=== PATIENT | female | born 2000 | race Caucasian/White ===

== ENCOUNTER 2023-04-09 11:51 | Outpatient (CLI) | payer OTHER, SELFPAY ==
[2023-04-09 12:35] LABS: Basophils Percent Auto 0.5 % (0.2-1.2); Eosinophils Absolute Auto 0.2 K/mm3 (0-0.3); Eosinophils Percent Auto 1.9 % (0-4.4); Hematocrit 43.2 % (37.0-47.0); Hemoglobin 14.9 g/dL (12.0-15.0); Immature Granulocyte Absolute 0.04 K/mm3 (0.00-0.031); Immature Granulocyte Percent A 0.5 % (0-0.5); Lymphocytes Absolute Auto 0.96 K/mm3 (0.9-3.2); Lymphocytes Percent Auto 11.3 % (18.3-44.2); Mean Corpuscular HGB Conc 34.5 g/dl (32-36); Mean Corpuscular Hemoglobin 31.2 pg (26-34); Mean Corpuscular Volume 90.4 fl (80-100); Mean Platelet Volume 10.1 fl (7.4-10.4); Monocytes Absolute Auto 0.5 K/mm3 (0.1-0.6); Monocytes Percent Auto 5.8 % (2.6-8.5); Neutrophils Absolute Auto 6.8 K/mm3 (1.3-6.7); Platelet Count Result 260 k/mm3 (150-375); Red Blood Count 4.78 M/mm3 (4.2-5.4); Red Cell Distribution Width 11.9 % (11.5-14.5); White Blood Count 8.5 K/mm3 (4.5-10.0)
[2023-04-09 13:28] LABS: HIV 1/2 Ab P24 Ag Result Negative (Negative)
[2023-04-09 13:43] LABS: Hepatitis B Surface Antigen Negative (Negative); Rubella IgG Antibody 6.6 IU/ML
[2023-04-10 15:53] LABS: Rapid Plasma Reagin Non-Reactive (NonReactive)
[2023-04-19 22:57] LABS: CF Result NEGATIVE (NEGATIVE); Ethnicity NG; SMA 2.0 RISK VARIANT NOT DETECTED
[2023-04-24 15:40] LABS: SMA Results Received Yes
== END 2023-04-09 11:52 | disposition home or self-care (01) ==
LOC: ANHLAB 11:53
PROVIDERS: Visit Provider Obstetrics & Gynecology
DX: N91.2 Amenorrhea, unspecified (principal)
CPT/HCPCS: 36415; 81220; 81329; 84702; 85025; 86592; 86644; 86703; 86747; 86762; 86787; 86850; 86900; 86901; 87086; 87088; 87340; G0432

== ENCOUNTER 2023-04-11 09:07 | Outpatient (CLI) | payer OTHER, SELFPAY ==
--- NOTE | ~2023-04-11 | US_ITS ---
Pelvic ultrasound. Clinical History: First trimester , subjacent viability Technique: Realtime transabdominal scanning of the pelvis was performed. Color flow Doppler and Doppl er spectral analysis were performed. Findings: The uterus is anteverted, and contains an intrauterine gestation. [place]-rump length of 7.9 cm corresponds to an estimated gestational age of 13 weeks 6 days. Placenta posteriorly located. Feta l heart rate is 152 bpm. The right ovary measures 3.1 x 2.3 x 1.8 cm. No significant right ovarian or adnexal mass is seen. The left ovary is not visualized. No significant left ovarian or adnexal mass is seen. There is no evidence of free fluid in the cul de sac. Impression: Live intrauterine gestation with estimated gestational age of 13 weeks 6 days. heart rate is 15 2 bpm. Sonographic RASTA is 10/13/2023. Reviewed, dictated and finalized at [facility]. CIPAL STATISTICAL PROGRAMMER Impression: Live intrauterine gestation with estimated gestational age of 13 weeks 6 days. heart rate is 152 bpm. Sonographic RASTA is 10/13/2023.
== END 2023-04-11 09:08 | disposition home or self-care (01) ==
PROVIDERS: Visit Provider Obstetrics & Gynecology
DX: Z34.91 Encounter for supervision of normal pregnancy, unspecified, first trimester (principal); Z3A.13 13 weeks gestation of pregnancy
CPT/HCPCS: 76801

== ENCOUNTER 2023-05-20 10:32 | Outpatient (CLI) | payer OTHER, SELFPAY ==
--- NOTE | ~2023-05-20 | US_ITS ---
EXAMINATION: US OB /maternal detail DATE: 05/20/2023 12:07 INDICATION: Encounter for supervision of normal . TECHNIQUE: Real-time ultrasound of the pelvis was performed. COMPARISON: Ultrasound 04/11/2023 FINDINGS: There is a single living fetus in vertex presentation. The placenta is fundal. heart rate is 1 47 beats per minute (bpm). The amniotic fluid volume is subjectively normal. The following biometric data were obtained: Biparietal diameter (BPD): 4.3 cm; head circumference (HC): 15.9 cm; abdominal circumference (AC): 13 .2 cm; femur length (FL): 2.6 cm. These measurements are concordant. Estimated weight is 237 g +/- 36 g, which correlates with the 11th percentile when 10/13/23 is us ed as estimated date of delivery. As single measurements, these parameters are each equal to the following estimated gestational ages: BPD: 18 weeks 6 days. HC: 18 weeks 5 days. AC: 18 weeks 5 days. FL: 17 weeks 6 days. estimated gestational age based solely on measurements from this exam is 18 weeks 4 days +/- 1 weeks 2 days. The cerebral ventricles, cerebellum, cisterna magna, and visualized portions of the spine are normal. The nuchal fold is not well visualized. The heart is normal. The diaphragm, stomach, kidneys, and bl adder are normal. There are two umbilical arteries to yield a 3-vessel cord. The cord insertion is no rmal. IMPRESSION: 1. Single living fetus in vertex presentation. 2. Estimated weight is 237 g +/- 36 g, which correlates with the 11th percentile when 10/13/23 i s used as estimated date of delivery. 3. Nuchal fold not visualized. Otherwise normal anatomic survey. Reviewed, dictated and finalized at location A. ESSORI PROGRAM DIRECTOR IMPRESSION: 1. Single living fetus in vertex presentation. 2. Estimated weight is 237 g +/- 36 g, which correlates with the 11th pe rcentile when 10/13/23 is used as estimated date of delivery. 3. Nuchal fold not visualized. Otherwise normal anatomic survey.
== END 2023-05-20 10:33 | disposition home or self-care (01) ==
LOC: ANHIMG 10:33
PROVIDERS: Visit Provider Obstetrics & Gynecology
DX: Z34.92 Encounter for supervision of normal pregnancy, unspecified, second trimester (principal); Z3A.18 18 weeks gestation of pregnancy
CPT/HCPCS: 76805

== ENCOUNTER 2023-06-08 09:59 | Observation (INO) | payer OTHER, SELFPAY ==
--- NOTE | ~2023-06-08 | US_ITS ---
EXAMINATION: US OB limited DATE: 06/08/2023 10:15 INDICATION: Bleeding in . Second trimester. TECHNIQUE: Real-time ultrasound of the pelvis was performed. COMPARISON: None. FINDINGS: There is a single fetus in vertex presentation. The placenta is posterior. heart rate is 165 b eats per minute (bpm). The amniotic fluid volume is subjectively normal. The deepest vertical pocket is 3.8 cm. The cervical length is 5.4 cm on transabdominal images, which is normal. IMPRESSION: 1. Single living fetus in vertex presentation. Reviewed, dictated and finalized at location A. IFIED CYTOTECHNOLOGIST
[2023-06-08 09:18] VITALS: BP 117/73; PULSE 98
--- NOTE | 2023-06-08 09:32 | PC.NURSE ---
Patient presented to L&D unit with complaints of dark pink vaginal bleeding. Patient states she had some bright red bleeding Friday (06/06/23) afternoon at work during a 12 hour shift. She states the bleeding decreased and turned brown. She states yesterday (06/07/23) she only had some brown spotting but was on her feet running errands all day. Today she awoke with a small amount of dark pink blood on a panty liner. Patient states when she went to the restroom, there was no more bleeding when she wiped. Patient called the exchange before arriving to the hospital. RN spoke with Dr. Trotter. Verbal orders received to obtain FHT as well as an ultrasound to check TOM, placenta, and cervical length. Patient agrees with plan of care at this time and has no questions.
--- NOTE | 2023-06-08 09:39 | PC.NURSE ---
Obtained FHT at bedside. FHT 145 at 0916.
[2023-06-08 09:41] VITALS: BMI 27.3
--- NOTE | 2023-06-08 09:42 | LDADM ---
This patient, Emily Varela, was admitted to OB Post 116 on 06/08/23 at 08:59. Plans for labor, pain management and were discussed with patient. Patient/family oriented to hospital policies and general routines including ID bracelet, bed and alarms, visiting hours, pain management, procedures, bathroom and other care routines, personal items, smoking policy, room service/diet and guest tray routines, infant security routines, and visiting hours. Patient/Family are encouraged to report perceived risks to care and to ask questions if they do not understand what they are told or what they should do. See OBIX for further documentation.
--- NOTE | 2023-06-08 10:26 | PC.NURSE ---
Notified Dr. Trotter of ultrasound report and decrease in bleeding. Verbal orders received for discharge to home.
--- NOTE | 2023-06-09 11:56 | PM.OBTRLD ---
OB - Triage/Final Diagnosis Visit Information Comments/Additional reasons for admission: I have assessed the risk for this patient, Emily Varela, and determined that she would benefit from observation care. Final Diagnosis (1) Vaginal bleeding before 22 weeks gestation: Code(s): O20.9 - Hemorrhage in early , unspecified Status: Acute
== END 2023-06-08 10:39 | disposition home or self-care (01) ==
PROVIDERS: Admitting Provider Obstetrics & Gynecology; Visit Provider Obstetrics & Gynecology
DX: O46.92 Antepartum hemorrhage, unspecified, second trimester (principal); Z3A.22 22 weeks gestation of pregnancy
CPT/HCPCS: 76815; G0378; G0379

== ENCOUNTER 2023-07-24 10:19 | Outpatient (CLI) | payer OTHER, SELFPAY ==
[2023-07-24 11:49] LABS: Basophils Percent Auto 0.4 % (0.2-1.2); Eosinophils Absolute Auto 0.1 K/mm3 (0-0.3); Eosinophils Percent Auto 0.7 % (0-4.4); Hematocrit 36.6 % (37.0-47.0); Hemoglobin 12.3 g/dL (12.0-15.0); Immature Granulocyte Absolute 0.05 K/mm3 (0.00-0.031); Immature Granulocyte Percent A 0.7 % (0-0.5); Lymphocytes Absolute Auto 0.96 K/mm3 (0.9-3.2); Lymphocytes Percent Auto 13.7 % (18.3-44.2); Mean Corpuscular HGB Conc 33.6 g/dl (32-36); Mean Corpuscular Hemoglobin 31.7 pg (26-34); Mean Corpuscular Volume 94.3 fl (80-100); Mean Platelet Volume 9.8 fl (7.4-10.4); Monocytes Absolute Auto 0.4 K/mm3 (0.1-0.6); Monocytes Percent Auto 5.8 % (2.6-8.5); Neutrophils Absolute Auto 5.5 K/mm3 (1.3-6.7); Neutrophils Percent Auto 78.7 % (45.5-73.1); Platelet Count Result 213 k/mm3 (150-375); Red Blood Count 3.88 M/mm3 (4.2-5.4); Red Cell Distribution Width 12.7 % (11.5-14.5)
[2023-07-24 12:04] LABS: Glucose 1 Hour PP 50gm Dose 117 mg/dL
[2023-07-24 12:45] LABS: HIV 1/2 Ab P24 Ag Result Negative (Negative)
== END 2023-07-24 10:20 | disposition home or self-care (01) ==
LOC: ANHLAB 10:21
PROVIDERS: Visit Provider Student in an Organized Health Care Education/Training Program
DX: Z34.90 Encounter for supervision of normal pregnancy, unspecified, unspecified trimester (principal)
CPT/HCPCS: 36415; 82947; 85025; 86703; G0432

== ENCOUNTER 2023-08-06 11:41 | Observation (INO) | payer OTHER, SELFPAY ==
[2023-08-06 12:11] VITALS: TEMP 36.3
[2023-08-06 12:12] VITALS: BP 111/69; PULSE 75
[2023-08-06 12:15] VITALS: BP 112/70; PULSE 76
[2023-08-06 12:26] LABS: Appearance Urine Cloudy (Clear); Bacteria Urine Rare /hpf; Bilirubin Urine Negative (Negative); Blood Urine 1+ (Negative); Color Urine Yellow (Yellow); Glucose Urine UA Negative (Negative); Ketones Urine Negative (Negative); Leukocyte Esterase Ur Negative LEU/UL (Negative); Nitrate Urine Negative (Negative); Non Pathogenic Casts 0-2; Protein Urine Negative (Negative); Specific Grav Ur 1.016 (1.001-1.035); Squamous Epithelial Cell Urine None Seen /hpf (Few); WBC Urine 0-5 /hpf (0-3); pH Urine 6.5 (5.0-9.0)
[2023-08-06 12:27] LABS: Add Urine Microscopic? YES
[2023-08-06 12:30] VITALS: BP 111/66; PULSE 70
--- NOTE | 2023-08-07 08:32 | PM.OBTRLD ---
OB - Triage/Final Diagnosis Visit Information Date of evaluation: 08/06/23 Reason for evaluation: other (abdominal pain) Comments/Additional reasons for admission: I have assessed the risk for this patient, Emily Varela, and determined that she would benefit from observation care. Evaluation Laboratory results: Laboratory Tests 08/06/23 12:14 Urine Color Yellow Urine Appearance Cloudy H Urine pH 6.5 Ur Specific [place] 1.016 Urine Protein Negative Urine Glucose (UA) Negative Urine Ketones Negative Ur Blood (Man) 1+ H Urine Nitrate Negative Urine Bilirubin Negative Urine Urobilinogen 1.0 Ur Leukocyte Esterase Negative Urine RBC 6-10 H Urine WBC 0-5 Ur Squamous Epith Cells None seen Urine Bacteria Rare Urine Casts 0-2 Vital signs: Vital Signs - 24 hr 08/06/23 12:12 08/06/23 12:15 08/06/23 12:30 Temperature Pulse Rate 75 76 70 Blood Pressure 111/69 112/70 111/66 08/06/23 12:11 Temperature 97.3 F L Pulse Rate Blood Pressure
== END 2023-08-06 13:20 ==
PROVIDERS: Admitting Provider Student in an Organized Health Care Education/Training Program; Visit Provider Student in an Organized Health Care Education/Training Program
DX: O26.899 Other specified pregnancy related conditions, unspecified trimester (principal); R10.9 Unspecified abdominal pain
CPT/HCPCS: 81001; 87086; G0378; G0379

== ENCOUNTER 2023-10-16 10:25 | Outpatient (RCR) | payer OTHER, SELFPAY ==
[2023-10-13 09:29] VITALS: BP 123/81; PULSE 90
--- NOTE | ~2023-10-16 | US_ITS ---
EXAMINATION: US OB BPP wo non-stress DATE: 10/16/2023 11:37 INDICATION: Passed due date TECHNIQUE: Real-time pelvic ultrasound was performed. The interpreting radiologist was not present fo r the study. COMPARISON: None. FINDINGS: There is a single living fetus in vertex presentation. The placenta is posterior. heart rate i s 144 beats per minute (bpm). Amniotic fluid volume is subjectively normal. Biophysical profile performed by the technologist: breathing (30 sec sustained breathing in 30 minutes): 2 out of 2 movement (3 gross body movements in 30 minutes): 2 out of 2 tone (one episode of hjtedjd-emgsgolpz-vsgdmox limb movement): 2 out of 2 Amniotic fluid pocket (2 cm): 2 out of 2 Total score: 8 out of 8 IMPRESSION: 1. Single living fetus in vertex presentation with heart rate of 144 bpm. 2. Biophysical profile 8 out of 8. Reviewed, dictated and finalized at location A.
--- NOTE | ~2023-10-16 | US_ITS ---
EXAMINATION: US OB follow up DATE: 10/13/2023 09:40 INDICATION: Post EDC, now at 40 weeks. Assess growth and estimated weight TECHNIQUE: Real-time ultrasound of the pelvis was performed. The interpreting radiologist was not pre sent for the study. COMPARISON: None. FINDINGS: There is a single living fetus in vertex presentation. The placenta is posterior. heart rate i s 136 beats per minute (bpm). The amniotic fluid volume is subjectively normal with normal deepest ve rtical pocket measuring 7.0 cm. The following biometric data were obtained: BPD: 8.9 cm -> 35 weeks 6 days Head circumference: 33.8 cm -> 38 weeks 6 days Abdominal circumference: 35.8 cm -> 39 weeks 6 days Femur length: 7.5 cm -> 38 weeks 4 days These measurements are concordant. Head circumference to abdominal circumference ratio: 0.95 (normal range 0.89-1.06). Estimated weight: 3603 g (+/-) 541 g or 7 lbs. 15 oz. (+/-) 1 lb. 3 oz. IMPRESSION: 1. Single living fetus in vertex presentation with heart rate of 136 bpm. 2. Estimated weight is 49th percentile by Hadlock criteria when 10/13/2023 is used as the estimat ed date of delivery (RASTA). Please correlate with clinical information or earlier ultrasounds for most accurate RASTA. Reviewed, dictated and finalized at location A. IMPRESSION: 1. Single living fetus in vertex presentation with heart rate of 136 bpm. 2. Estimated weight is 49th percentile by Hadlock criteria when 10/13/2023 is used as the estimated date of delivery (RASTA). Please correlate with clinical information or earlier ultrasounds for most accurate RASTA.
[2023-10-16 15:17] VITALS: BP 116/76; PULSE 95
== END 2023-11-25 15:59 | disposition home or self-care (01) ==
LOC: ANHOBOP 10:25
PROVIDERS: PCP Nurse Practitioner Adult Health; Visit Provider Obstetrics & Gynecology
DX: O48.0 Post-term pregnancy (principal); Z3A.40 40 weeks gestation of pregnancy
CPT/HCPCS: 59025; 76816; 76819

== ENCOUNTER 2023-10-19 15:39 | Inpatient (IN) | payer OTHER, SELFPAY ==
[2023-10-19] VITALS (12 sets, daily range): BP systolic 99–124; BP diastolic 51–77; PULSE 70–94; TEMP 36.2–36.6; BMI 31.6
[2023-10-19] MEDS: DINOPROSTONE 10 MG VAG INSERT VAGINAL (16:30)
[2023-10-19 16:42] LABS: Basophils Absolute Auto 0.1 K/mm3 (0.0-0.1); Basophils Percent Auto 0.6 % (0.2-1.2); Eosinophils Absolute Auto 0.1 K/mm3 (0-0.3); Eosinophils Percent Auto 0.6 % (0-4.4); Hematocrit 38.5 % (37.0-47.0); Hemoglobin 13.2 g/dL (12.0-15.0); Immature Granulocyte Absolute 0.11 K/mm3 (0.00-0.031); Immature Granulocyte Percent A 1.1 % (0-0.5); Lymphocytes Absolute Auto 1.25 K/mm3 (0.9-3.2); Lymphocytes Percent Auto 12.9 % (18.3-44.2); Mean Corpuscular HGB Conc 34.3 g/dl (32-36); Mean Corpuscular Volume 93.4 fl (80-100); Mean Platelet Volume 10.7 fl (7.4-10.4); Monocytes Absolute Auto 0.5 K/mm3 (0.1-0.6); Neutrophils Absolute Auto 7.7 K/mm3 (1.3-6.7); Neutrophils Percent Auto 79.8 % (45.5-73.1); Platelet Count Result 219 k/mm3 (150-375); Red Blood Count 4.12 M/mm3 (4.2-5.4); Red Cell Distribution Width 12.9 % (11.5-14.5); White Blood Count 9.7 K/mm3 (4.5-10.0)
--- NOTE | 2023-10-19 17:30 | WPDANESEPP ---
Anes - Eval Pre Procedure Procedure: Labor epidural Date/Time: 10/19/23 17:30 Surgeon: Heidi Preop Diagnosis: Abdominal pain with contractions Pre Op Diagnosis: IOL Patient Data Age: 23 Gender: F Height: 1.68 m Weight: 89 kg Last Vital Signs Temp 97.2 F L 10/19/23 16:00 Pulse 84 10/19/23 17:15 BP 119/67 10/19/23 17:15 O2 Del Method Room Air 10/19/23 16:13 Allergies Allergy/AdvReac Type Severity Reaction Status Date / Time No Known Allergies Allergy Verified 10/13/23 14:32 Home Medications Medication Instructions Recorded Confirmed Type vitamin 1 tablet BYMOUTH 04/09/23 10/13/23 History Laboratory Tests 10/19/23 16:10 WBC 9.7 K/mm3 (4.5-10.0) RBC 4.12 L M/mm3 (4.2-5.4) Hgb 13.2 g/dL (12.0-15.0) Hct 38.5 % (37.0-47.0) MCV 93.4 fl (80-100) MCH 32.0 pg (26-34) MCHC 34.3 g/dl (32-36) RDW 12.9 % (11.5-14.5) Plt Count 219 k/mm3 (150-375) MPV 10.7 H fl (7.4-10.4) Immature Gran % (Auto) 1.1 H % (0-0.5) Neut % (Auto) 79.8 H % (45.5-73.1) Lymph % (Auto) 12.9 L % (18.3-44.2) [place] % (Auto) 5.0 % (2.6-8.5) Eos % (Auto) 0.6 % (0-4.4) Baso % (Auto) 0.6 % (0.2-1.2) Lymph # (Auto) 1.25 K/mm3 (0.9-3.2) [place] # (Auto) 0.5 K/mm3 (0.1-0.6) Eos # (Auto) 0.1 K/mm3 (0-0.3) Baso # (Auto) 0.1 K/mm3 (0.0-0.1) Abs Immat Gran (auto) 0.11 H K/mm3 (0.00-0.031) Absolute Neuts (auto) 7.7 H K/mm3 (1.3-6.7) Absolute Nucleated RBC 0.000 K/mm3 (0.0-0.012) Nucleated RBC % 0.0 % (0.0-0.2) RPR Pending HIV 1&2 Ab/P24 Ag 4thGn Pending Blood Type AB Positive Antibody Screen Negative : gestational age HCG: positive Patient hx anesthesia problems: none Family hx anesthesia problems: none Results Review: All pre-operative results and documents have been reviewed as part of the pre-operative evaluation. [facility] Past Medical History Medical History (Updated 10/19/23 @ 17:32 by Raul Dorantes Jr., CRNA) Migraines Nausea & vomiting Over weight Vaginal discharge Family History Family History Grandparent Hypertension Father Multiple sclerosis Sibling Depression Social History Social History Smoking status: Never smoker Second hand tobacco smoke exposure: No Alcohol intake: never Substance use: never Substance use type: does not use Do You Feel Safe in your Home?: Yes Lack of Transportation: No Lack of Food: Never True Current Housing: I Have Housing Concerned About Future Housing: No Difficulty Paying Gas/Electric Bills: No Difficulty Paying for Meds: No Currently Unemployed: No Education: Associate Degree Difficulty w/ Childcare or Family Care: No Living arrangements: with family Additional living arrangements comments: boyfriend Occupation/Education: occupation Additional occupation/education comments: [employer] Gender identity (if verbalized by the patient): Female Sexual Orientation (if Verbalized by the Patient): Straight or Heterosexual Spiritual care concerns: No Exam Day of Procedure 10/19/23 17:30 Patient weight: overweight
[2023-10-19 17:34] LABS: HIV 1/2 Ab P24 Ag Result Negative (Negative)
[2023-10-20] VITALS (164 sets, daily range): BP systolic 95–207; BP diastolic 43–125; PULSE 68–164; RESP 16–18; TEMP 36.3–37.3; O2SAT 82–100
[2023-10-20] MEDS: OXYTOCIN 30 UNITS/NS 500 ML 30 UNITS/500 ML BAG 6 UNITS IV CONT (05:06)
[2023-10-20] MEDS: LACTATED RINGERS 1,000 ML 125 ML IV CONT ×2 (05:06→09:24)
[2023-10-20 07:11] LABS: Rapid Plasma Reagin Non-Reactive (NonReactive)
--- NOTE | 2023-10-20 13:30 | WPDHPUPDATE1 ---
History and Physical Update Update Date/Time: 10/20/23 13:30 History and Physical has been reviewed, including an updated exam of the patient. There are NO changes in the patient's condition. Risks, benefits, and alternatives have been discussed and questions answered. Patient agrees to proceed with procedure.
--- NOTE | 2023-10-20 13:30 | WPDOBADMIT ---
Obstetrics - Admit Note Admission Note: record reviewed. No pertinent additions to the history and/or any subsequent changes in the physical findings that are not consistent with the expected course of the were found. Additions to the history and/or subsequent changes in the physical findings follow. None.
--- NOTE | 2023-10-20 13:31 | PM.OBPRVD ---
OB - Vaginal Delivery Note Procedure Delivery date: 10/20/23 Events: Other ( post dates management) Induction method: Per Cervidil Protocol Delivery augmentation: Rupture of Membranes and Pitocin Delivery monitor: External FHT and Internal Uterine Route of delivery: Episiotomy description: None Laceration Description: Vaginal Delivery repair: chromic Specimen: No Quantitative Blood Loss (ml): 200 Anesthesia type: Epidural Disposition: Floor Complications: No immediate complications Narrative: patient prepped and draped usual manner for this procedure. Maternal expulsive efforts readily delivered vertex, rest the baby without difficulty. Cord clamped cut and placenta delivered spontaneously. Cervix vagina vulva were inspected with vaginal laceration noted. This was approximated using 2-0 chromic running interlocking manner with good approximation hemostasis noted. Uterus was well contracted with minimal bleeding. Immediate postoperative condition of mother and baby both excellent. [place] Baby Weeks of gestation at delivery: 41 Infant gender: Male presentation: vertex position: Right Occiput Anterior Placenta delivery description: Spontaneous Cord Vessel Description: 3 Vessels
[2023-10-20] MEDS: OXYTOCIN 30 UNITS/NS 500 ML 30 UNITS/500 ML BAG 125 UNITS IV CONT (13:42)
--- NOTE | 2023-10-20 16:30 | OBPPTRN ---
Patient transferred to post room #286 via wheelchair. Support person present. Oriented to unit, room, information board, rooming in, admission packet and security measures. Patient verbalizes understanding.
[2023-10-21 05:45] LABS: Hemoglobin 11.8 g/dL (12.0-15.0)
[2023-10-21] MEDS: MULTIVIT/MIN/PREN/FOL AC/IRON TABLET 1 TAB PO (07:38)
[2023-10-21] MEDS: DOCUSATE SODIUM 100 MG CAPSULE PO ×2 (07:38→17:23)
[2023-10-21 07:45] VITALS: BP 116/74; PULSE 74; RESP 16; TEMP 36.3; O2SAT 99
--- NOTE | 2023-10-21 08:34 | PM.OBPNVD ---
OB - PN: Subj Subjective Date/time seen: 10/21/23 08:34 Patient comments: no complaints, pain well controlled and tolerating diet [place] feeding status: exclusively breast feeding Narrative: patient doing well this AM. No complaints. Pain is well controlled. She reports minimal bleeding. She is ambulating and voiding without difficulty. She is tolerating PO. She denies N/V, fever, chills. OB - PN: Obj Data Labs 10/21/23 04:35 Labs: Laboratory Results - last 24 hr 10/21/23 04:35 Hgb 11.8 L Hct 35.0 L OB - PN A/P Plan day: 1 Plan: routine care Comments: patient doing well H/H stable pain controlled patient desires infant circumcision. Risks, benefits, alternatives discussed continue routine care Time Spent With Patient Time: Total time spent is greater than 50% in coordination of care (as documented) at patient's floor/unit and/or counseling patient: Time with patient: less than 15 minutes Review of Systems Review of Systems: All systems reviewed & are unremarkable except as noted in HPI and below Exam Const: General: comfortable and no acute distress Resp: Effort & Inspection: normal respiratory effort Cardio: Rate: regular rate GI: GI Palp: Yes Soft to palpation and No Tenderness to palpation present (GI) Auscultation: normal bowel sounds Other: fundus firm and below umbilicus. Psych: Affect: normal affect
--- NOTE | 2023-10-21 09:30 | PC.NURSE ---
Met with mother regarding assistance. Mother states that she is using football hold but may like to try something else because she feels like her nipples are sore. She is able to latch infant independently. Mother will call out at next feeding for a latch and positioning guidance.
--- NOTE | 2023-10-21 11:07 | WPDANLDPN2 ---
Anes-Prog Note L&D Date/Time: 10/21/23 11:07 Comfortable throughout: labor and delivery Neuraxial method: epidural Epidural/Spinal procedure site: clean & non-tender Neuro status: Neuro function grossly intact. Cardiovascular status: normal Respiratory status: normal Airway patency: baseline Mental status: baseline Post-Op hydration status: normal Vital Signs: Last Vital Signs Temp 36.3 C L 10/21/23 07:45 Pulse 74 10/21/23 07:45 Resp 16 10/21/23 07:45 BP 116/74 10/21/23 07:45 Pulse Ox 99 10/21/23 07:45 O2 Del Method Room Air 10/21/23 08:07 Pain score (VAS): 2/10 Post-procedural complaints: none Patient feedback: Patient satisfied with anesthetic care.
[2023-10-21 11:56] VITALS: BP 97/64; PULSE 85; RESP 18; TEMP 37.1; O2SAT 99
--- NOTE | 2023-10-21 18:00 | PC.NURSE ---
Breast pump provided due to [use of the nipple shield]. Instructions given on cleaning, care, usage, that there should be no pain, pumping schedule for milk production, collection, and storage of human milk. Patient was assessed for correct placement, flange size (21mm), to pump for nipple stretching/stimulation for adequate milk production every 3 hours (8 times in 24 hours) 1-2 times at night.?Mother voiced understanding of the education shared along with mom/baby guide and the pump measurement, flange fit handout for additional resource information. Mother also concerned sometimes has a shallow latch with the shield. Advised she wait for a wide open mouth, nose to nipple, and make sure baby's chin and nose are close to the breast. Mother will call for assistance as needed. Reported to the Primary RN.
--- NOTE | 2023-10-21 18:42 | PM.OBDSVD ---
DS: Admitting Diagnosis Discharge Date 10/22/2023 Admitting Diagnosis DS: Discharge Diagnosis Discharge Diagnosis (1) , delivered: Code(s): O80 - Encounter for full-term uncomplicated delivery Status: Acute OB - DS: Summary OB Procedures : None OB Procedures Intrapartum: Spontaneous Vag Delivery OB Procedures: : None Peripartum Data Laceration Description: Vaginal Episiotomy description: None Time Spent with Patient Time attestation: Total time spent providing and/or coordinating discharge services: DS: Data Data Completed and Pending Labs on day of discharge: Labs from last 24 hours 10/21/23 04:35 Hgb 11.8 L Hct 35.0 L Discharge Plan Discharge Discharging Clinician: Arden Gordon Patient Disposition: Home, Self-Care Activity: may shower, as tolerated, follow weight bearing status and pelvic rest Diet: as tolerated Patient Instructions: Antibiotic Form Stand Alone Forms: General Discharge Information Follow-up/Referrals: Arden Gordon MD [Physician] - 3 Weeks Discharge Medications: New ibuprofen 600 mg Tablet 600 mg PO Q6H PRN (Reason: Cramping) Qty: 20 0RF Continued vitamin 1 tablet BYMOUTH DAILY Date of admission: 10/19/23 15:39 Primary Care Provider: Neha Eugene Admitting Provider: Arden Gordon Attending physician on admission: Arden Gordon Condition: Stable
[2023-10-21 20:15] VITALS: BP 110/70; PULSE 85; RESP 16; RESP 18; TEMP 36.9; O2SAT 99
[2023-10-22 08:00] VITALS: PULSE 70; RESP 16; O2SAT 98
[2023-10-22 08:20] VITALS: BP 105/77; PULSE 70; RESP 16; TEMP 36.6; O2SAT 98
--- NOTE | 2023-10-22 09:25 | PC.NURSE ---
Consulted with mother concerning needs and she shared her ability to independently latch infant optimally without pain. Baby is latched well with the nipple shield on the right breast in football hold. Mother is feeling much more comfortable with the nipple shield. Mother is feeding appropriately for growth of infant and understands stimulating to eat if needed. Infant has had appropriate feedings in the last 24 hours meets the outcomes for weight, output, blood sugar and jaundice at this time. Reinforced understanding of milk production, transition of milk, signs of adequate intake, transition of stool, prevention/relief of engorgement, responsive watching for feeding cues, the different methods of stimulating infant to breastfeed 1-3 hours after the start of the last feeding, community resources, and when to call a provider using the resource of the feeding sheet along with the mom and baby guide. Mother voiced understanding of the information shared, is confident to continue effectively her infant at home, when to call for assistance, denies any additional assistance or education at this time. Reported to the Primary RN.
[2023-10-22] MEDS: DOCUSATE SODIUM 100 MG CAPSULE PO (10:13)
[2023-10-22] MEDS: MULTIVIT/MIN/PREN/FOL AC/IRON TABLET 1 TAB PO (10:13)
--- NOTE | 2023-10-22 12:12 | PC.NURSE ---
Patient viewed the discharge video Mother & Baby Care, The First Two Weeks . Patient was given the opportunity and encouraged to ask questions. Patient verbalized understanding of information shared and has been given the mother/baby guide for home reference.
[2023-10-22] MEDS: MEASLES,MUMPS,RUBELLA VACCINE 0.5 ML VIAL SUB-Q (13:25)
[2023-10-24 16:07] VITALS: BP 115/77; PULSE 88; RESP 18; TEMP 37; O2SAT 98
== END 2023-10-22 13:40 | disposition home or self-care (01) | DRG 807 ==
LOC: ANHLDR 15:44 → ANHOB2 10-20 17:04
PROVIDERS: Admitting Provider Obstetrics & Gynecology; PCP Nurse Practitioner Adult Health; Visit Provider Obstetrics & Gynecology
DX: O48.0 Post-term pregnancy (principal); Z37.0 Single live birth; O70.0 First degree perineal laceration during delivery; Z3A.41 41 weeks gestation of pregnancy
CPT/HCPCS: 36415; 85014; 85018; 85025; 86592; 86703; 86850; 86900; 86901; 90710; A9270; G0432; J2590; J2795; J7120

== ENCOUNTER 2023-12-16 12:23 | Outpatient (CLI) | payer OTHER, SELFPAY ==
[2023-12-16 19:10] LABS: Beta HCG Quantitative < 2.39 mIU/ML
== END 2023-12-16 12:24 | disposition home or self-care (01) ==
PROVIDERS: PCP Nurse Practitioner Adult Health; Visit Provider Obstetrics & Gynecology
DX: Z30.9 Encounter for contraceptive management, unspecified (principal)
CPT/HCPCS: 36415; 84702

== ENCOUNTER 2024-12-13 17:28 | Emergency (ER) | payer OTHER, SELFPAY ==
--- NOTE | ~2024-12-13 | XR_ITS ---
XR elbow RT 2V 12/13/2024 19:12 INDICATION: Right elbow pain after fall PROCEDURE: 2 views right elbow COMPARISON: No prior studies for comparison. FINDINGS: Fracture, dislocation or subluxation is not identified. The soft tissues appear within normal limits. No foreign bodies are identified. IMPRESSION: 1: NO ACUTE BONE OR JOINT ABNORMALITY IDENTIFIED. Reviewed, dictated and finalized at location O.
--- NOTE | ~2024-12-13 | XR_ITS ---
XR ankle RT min 3V 12/13/2024 19:12 INDICATION: Ankle pain after fall PROCEDURE: 3 views right ankle COMPARISON: 07/06/2012 FINDINGS: Fracture, dislocation or subluxation is not identified. The soft tissues appear within normal limits. No foreign bodies are identified. IMPRESSION: 1: NO ACUTE BONE OR JOINT ABNORMALITY IDENTIFIED. Reviewed, dictated and finalized at location O.
[2024-12-13 17:41] VITALS: BP 121/89; PULSE 93; RESP 18; TEMP 37.2; O2SAT 100
--- NOTE | 2024-12-13 19:26 | ED.GENADULT ---
HPI - General Adult General Chief complaint: Fall Stated complaint: fall off porch, right ankle pain, right elbow pain Time Seen by Provider: 12/13/24 18:49 History of Present Illness HPI narrative: This is a 24-year-old female presenting with right ankle pain. She was holding her child when she slipped and fell downstairs rolling her right ankle and hitting her right elbow. Did not strike her head. No use of blood thinners. She has had pain with ambulation. She is taking for pain control. Related Data Home Medications ?Medication ?Instructions ?Recorded ?Confirmed ?Last Taken ?Type levonorgestrel 14 mcg/24 hr (up to 1 device intrauterine ONCE 12/17/23 10/05/24 Unknown History 3 yrs) 13.5 mg intrauterine device (Shayy) Allergies Allergy/AdvReac Type Severity Reaction Status Date / Time No Known Allergies Allergy Verified 12/13/24 17:53 [facility] Past Medical History Medical History Encounter for screening examination for sexually transmitted disease Migraines Nausea & vomiting Over weight Remove/insert IUD Vaginal discharge Family History Family History Grandparent Hypertension Father Multiple sclerosis Sibling Depression Social History Social History Smoking status: Never smoker Second hand tobacco smoke exposure: No Alcohol intake: never Substance use: never Substance use type: does not use Do You Feel Safe in your Home?: Yes Lack of Transportation: No Lack of Food: Never True Current Housing: I Have Housing Concerned About Future Housing: No Difficulty Paying Gas/Electric Bills: No Difficulty Paying for Meds: No Currently Unemployed: No Education: Associate Degree Difficulty w/ Childcare or Family Care: No Living arrangements: with family Additional living arrangements comments: boyfriend Occupation/Education: occupation Additional occupation/education comments: [employer] Gender identity (if verbalized by the patient): Female Sexual Orientation (if Verbalized by the Patient): Straight or Heterosexual Spiritual care concerns: No Exam Narrative: APPEARANCE: No apparent distress. Head: atraumatic. EYES: EOMI, NOSE: Atraumatic NECK: Trachea midline RESPIRATORY: No increased rate of breathing CARDIOVASCULAR: RRR, ABDOMINAL: Non-distended MUSCULOSKELETAl: Focal exam of the right ankle showed no tenderness over the posterior malleoli. No tenderness over the base of the 5th metatarsal. No significant swelling or bruising. No focal point of tenderness. Pulses are intact. Motor function intact. Focal exam of the right upper extremity reveals small abrasion over the elbow. No pain with active or passive range of motion of the elbow. Network Communications Engineer strength intact. Radial ulnar versus intact. NEURO: Alert. Moving 4/4 extremities SKIN:: Warm, dry. Normal color PSYCHIATRIC: Normal affect Course Vital Signs Vital signs: Vital Signs Temperature 98.9 F 12/13/24 17:41 Pulse Rate 93 12/13/24 17:41 Respiratory Rate 18 12/13/24 17:41 Blood Pressure 121/89 12/13/24 17:41 Pulse Oximetry 100 12/13/24 17:41 Oxygen Delivery Room Air 12/13/24 17:41 Temperature 98.9 F 12/13/24 17:41 Pulse Rate 93 12/13/24 17:41 Respiratory Rate 18 12/13/24 17:41 Blood Pressure 121/89 12/13/24 17:41 Pulse Oximetry 100 12/13/24 17:41 Oxygen Delivery Room Air 12/13/24 17:41 Medical Decision Making MDM Narrative Medical decision making narrative: -Course: 24-year-old female presenting ankle pain after fall. X-rays of the elbow and ankle negative for fracture. She will be discharged with primary care follow-up. Return precautions. -DDX includes but is not limited to: Ankle sprain, ankle fracture, elbow sprain, elbow fracture Vital Signs Vital Signs: Vital Signs Temperature 98.9 F 12/13/24 17:41 Pulse Rate 93 12/13/24 17:41 Respiratory Rate 18 12/13/24 17:41 Blood Pressure 121/89 12/13/24 17:41 Pulse Oximetry 100 12/13/24 17:41 Oxygen Delivery Room Air 12/13/24 17:41 Temperature 98.9 F 12/13/24 17:41 Pulse Rate 93 12/13/24 17:41 Respiratory Rate 18 12/13/24 17:41 Blood Pressure 121/89 12/13/24 17:41 Pulse Oximetry 100 12/13/24 17:41 Oxygen Delivery Room Air 12/13/24 17:41 Discharge Plan Discharge Clinical Impression: Ankle sprain Patient Disposition: Home Condition: Stable Instructions: Antibiotic Form, Arthralgia (ED) Additional Instructions: Using emergency department for ankle pain. Please use Motrin and Tylenol as instructed. If your pain is not improving please follow-up your primary care physician in 1 week. If you develop severe pain or any new symptoms please return to ED for re-evaluation. Patient Language: Romansh Prescriptions: New acetaminophen 500 mg tablet 1,000 mg PO TID PRN (Reason: erlinda) 7 Days Qty: 42 0RF ibuprofen 800 mg tablet 800 mg PO TID PRN (Reason: pain) 7 Days Qty: 21 0RF No Action Shayy 14 mcg/24 hr (3 yrs) 13.5 mg intrauterine device 1 device intrauterine ONCE Rx Instructions: as a single dose Follow-up/Referrals: Neha Eugene APRN [Primary Care Provider, Family Practice]
[2024-12-13] MEDS: ACETAMINOPHEN 500 MG TABLET 1000 MG PO (19:37)
[2024-12-13] MEDS: IBUPROFEN 400 MG TABLET 800 MG PO (19:38)
== END 2024-12-13 19:47 | disposition home or self-care (01) ==
PROVIDERS: Emergency Provider Emergency Medicine; PCP Nurse Practitioner Adult Health
DX: S93.401A Sprain of unspecified ligament of right ankle, initial encounter (principal); W10.9XXA Fall (on) (from) unspecified stairs and steps, initial encounter
CPT/HCPCS: 73070; 73610; 99284; A9270